=== PATIENT | male | born 1990 | race African-American/Black ===

== ENCOUNTER 2016-07-12 16:46 | Emergency (ER) | payer SELFPAY ==
[2016-07-12 19:13] LABS: BASOPHILS 0.4 % (0.0-2.0); EOSINOPHILS 3.6 % (0-7); HEMATOCRIT 42.9 % (42.0-54.0); HEMOGLOBIN 14.1 g/dL (13.5-17.5); IMMATURE GRANULOCYTES 0.2 % (0-5); LYMPHOCYTES 44.3 % (15-50); MCH 29.6 pg (26.0-34.0); MCHC 32.9 g/dL (31.0-37.0); MCV 90.1 fL (80.0-100.0); MEAN PLATELET VOLUME 11.7 fL (7.4-10.4); NEUTROPHILS 45.5 % (40-80); PLATELET COUNT 145 10x3/uL (130-400); RBC 4.76 10x6/uL (4.20-6.10); RDW 11.6 % (11.5-14.5); WBC 5.4 10x3/uL (4.8-10.8)
[2016-07-12 19:26] LABS: ALBUMIN 4.1 g/dL (3.4-5.0); ALKALINE PHOSPHATASE 54 U/L (46-116); ALT (SGPT) 42 U/L (10-68); BILIRUBIN - TOTAL 0.47 mg/dL (0.2-1.3); CALC OSMOLALITY 277 mosm/kg (275-300); CALCIUM 8.4 mg/dL (8.5-10.1); CARBON DIOXIDE 30.4 mmol/L (21.0-32.0); CHLORIDE - SERUM 105 mmol/L (98-107); CREATININE - SERUM 1.4 mg/dL (0.6-1.3); GLUCOSE 86 mg/dL (74-106); POTASSIUM - SERUM 3.8 mmol/L (3.5-5.1); PROTEIN - SERUM 7.7 g/dL (6.4-8.2); SODIUM 140 mmol/L (136-145); UREA NITROGEN 12 mg/dL (7-18); eGFR NON AFRICAN AMERICAN 65 mL/min (90-120)
[2016-07-12 19:31] LABS: TROPONIN-I < 0.017 ng/mL (0.000-0.060)
== END 2016-07-12 21:50 | disposition home or self-care (01) ==
LOC: D.ER 16:46
PROVIDERS: Emergency Medicine
DX: J20.9 Acute bronchitis, unspecified (principal); B34.9 Viral infection, unspecified; J30.9 Allergic rhinitis, unspecified